=== PATIENT | female | born 1975 | race Caucasian/White ===

== ENCOUNTER → 2022-12-26 13:00 | Outpatient (CLI) | payer OTHER, BC, SELFPAY ==
--- NOTE | ~2022-12-26 | XR_ITS ---
EXAMINATION: XR foot RT min 3V DATE: 12/26/2022 13:32 INDICATION: Right foot pain TECHNIQUE: Dorsoplantar, lateral, and 2 oblique views of the right foot were obtained. COMPARISON: None. FINDINGS: No fracture, dislocation, or subluxation. The bones, soft tissues, and joint spaces are nor mal. IMPRESSION: 1. No acute osseous abnormality. Reviewed, dictated and finalized at location F. RELINER
== END ==
PROVIDERS: PCP Internal Medicine; Visit Provider Nurse Practitioner Family
DX: M25.571 Pain in right ankle and joints of right foot (principal)
CPT/HCPCS: 73630

== ENCOUNTER 2024-07-14 14:50 | Outpatient (CLI) | payer BC, SELFPAY ==
--- NOTE | ~2024-07-14 | CT_ITS ---
EXAMINATION: CT foot RT wo con DATE: 07/14/2024 15:21 INDICATION: Nonunion right fifth metatarsal fracture TECHNIQUE: High resolution computed tomography (CT) of the right foot was performed without intraveno us contrast. Additional sagittal and coronal reconstructions were performed. Matter dose Mendoza The dose-length product was 260.52 mGy-cm. COMPARISON: None FINDINGS: Nondisplaced oblique extra articular fracture at the neck of the fifth metatarsal which remains in es sentially anatomic alignment mild polyarticular osteoarthritis at the first metatarsophalangeal and m ultiple tarsometatarsal and interphalangeal joints. Soft tissues are unremarkable.. There is a small amount of nonbridging callus formation along the medial margin of the fracture. No evident solid osse ous bridging across the fracture plane which appears irregular some increased sclerosis but no eviden t solid cortication to suggest nonunion. Irregular cortical contour showing across the proximal metap hyseal region of the fifth metatarsal consistent with likely old healed fracture. There is a small os seous excrescence with cortical and medullary continuity at the medial side of the neck of the fifth proximal phalanx suggesting a small benign osteochondroma. IMPRESSION: 1. Small amount of nonbridging os formation along the medial side of an ununited oblique fracture at the neck of the distal fifth metatarsal. Reviewed, dictated and finalized at location A. IMPRESSION: 1. Small amount of nonbridging os formation along the medial side of an ununite d oblique fracture at the neck of the distal fifth metatarsal.
== END 2024-07-14 14:51 | disposition home or self-care (01) ==
LOC: GOSHIMG 14:50
PROVIDERS: PCP Podiatrist Foot & Ankle Surgery; Visit Provider Podiatrist Foot & Ankle Surgery
DX: S92.354K Nondisplaced fracture of fifth metatarsal bone, right foot, subsequent encounter for fracture with nonunion (principal); X58.XXXD Exposure to other specified factors, subsequent encounter
CPT/HCPCS: 73700

== ENCOUNTER 2024-10-23 14:38 | Emergency (ER) | payer BC, SELFPAY ==
--- NOTE | ~2024-10-23 | CT_ITS ---
EXAMINATION: CT brain wo con COMPARISON: None HISTORY: dizziness, hx falling TECHNIQUE: Axial images were obtained through the brain without IV contrast. CT scan performed using dose optimization techniques including the following automated exposure control; adjustment of mA and/or kV; use of iterative reconstruction technique. Automatic exposure control was used to reduce radiation dose. Permanent radiation dose record is archived to PACS. FINDINGS: No acute infarct or parenchymal hemorrhage. No abnormal mass or mass effect. No midline shift. No extra-axial fluid collections. No hydrocephalus. . Mastoid air cells unremarkable. Severe right maxillary sinusitis, underlying polyp formation suspected No acute fracture. No significant facial or scalp soft tissue swelling evident. No radiopaque foreign body is seen. Impression: 1.No acute intracranial abnormality. Reviewed, dictated and finalized at location A. Impression: 1.No acute intracranial abnormality.
--- OUTSIDE RECORDS SUMMARY | 2024-10-23 14:41 | XMS_ITS | Encounter Summary ---
Author Organization [facility] Address [address] [place] [address] Care Team Providers Care Campus Aide Name Role Phone Gunnar Gonzalez MD Primary Care Provider [phone] Reason for Visit * Reason Comments Refill Request Encounter Details Date Type Department Care Team (Late st Contact Info) Description 10/18/2024 Refill [facility] - Rheumatology [address] [place] [address], [facility] [place] [address] Gayle Spear MD [address] [place] [address] [place] [phone] Refill Request Social History Tobacco Use Types Packs/Day Years Used Date Smoking Tobacco: Never Smokeless Tobacco: Never Alcohol Use Standard Drinks/Week Comments Never 0 (1 standard drink = 0.6 oz pur e alcohol) Comments No Sex and Gender Information Value Date Recorded Sex Assigned at Female 08/15/2022 9:35 PM CDT Legal Sex Female 9:43 AM CDT Gender Identity Female 08/15/2022 9:35 PM CDT Sexual Orientation Straight 08/15/2022 9: 35 PM CDT documented as of this encounter Miscellaneous Notes * Telephone Encounter - Alejandra Saenz MD - 10/22/2024 3:22 PM CDT Pt needs follow up appointment with one of our first year fellows Sadie Yates or Anjum * Telephone Encounter - Zaid Reyes RN - 10/21/2024 3:44 PM CDT Refill Request Aissatou Santiago PASQUALE: 06/10/24Dec due: 6 month f/u DEC scheduled: Visit date not found LRF: Meloxicam 07/22/24; Plaquenil 07/22/24 Qty Disp: Meloxicam 90 tabs; Plaquenil 180 tab # of refills: Meloxicam 0; Plaquenil 0 Allergies: Allergies[1] Pended Medication Order: Requested Prescriptions Pending Prescriptions Disp Refills meloxicam (Mobic) 15 MG tablet [Pharmacy Med Name: Meloxicam 15 MG Oral Tablet] 90 tablet 0 Sig: Take 1 tablet by mouth once daily hydroxychloroquine (Plaquenil) 200 MG tablet [Pharmacy Med Name: Hydroxychloroquine Sulfate 200 MG Oral Tablet] 180 tablet 0 Sig: Take 1 tablet by mouth twice daily [1] Allergies Allergen Reactions Penicillins Itching documented in this encounter Plan of Treatment Not on file documented as of this encounter Visit Diagnoses Diagnosis Chronic fatigue Other malaise and fatigue Positive RUBY (antinuclear antibody) Other and unspecified nonspecific immunological findings documented in this encounter Care Teams Campus Aide Relationship Specialty Start Date End Date Gunnar Gonzalez MD [address] [place] [address] PCP - General 06/06/22 documented as of this encounter
--- OUTSIDE RECORDS SUMMARY | 2024-10-23 14:41 | XMS_ITS | Clinical Summary ---
Author Organization [facility] Address [address] 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 Gender Identity Not on file Sexual Orientation Not on file Plan of Treatment Health Maintenance Due Date Last Done Comments DTAP/TDAP/TD VACCINES (1 - Tdap) 12/19/1994 HEPATITIS B VACCINES (1 of 3 - 19+ 3-dose series) 12/06 HPV/Cotest (21-29) 12/19/1996 CERVICAL CANCER SCREENING 12/19/2005 HPV/Cotest (30-65) 12/19/2005 PAP SMEAR 12/19/2005 BREAST CANCER SCREENING 2015 COLORECTAL SCREENING 12/19/2020 Colorectal Cancer Screening 12/19/2020 FIT-DNA Q 3 years 12/19/2020 FIT/FOBT Q 1 year 12/19/2020 Flex Sig/CT Colonography Q 5 years 12/19/2020 INFLUENZA VACCINE (#1) 2024 Insurance RX [facility]
--- OUTSIDE RECORDS SUMMARY | 2024-10-23 14:41 | XMS_ITS | Clinical Summary ---
Author Organization [facility] Address [address] [place] [address] Care Team Providers Care Travel Nurse Name Role Phone Gunnar Gonzalez MD Primary Care Provider [phone] Source Comments [facility],non-owned Affiliates and Associated Physician Practices is amultiple site organization consisting of ambulatory clinics and hospital sitesin [place] and [place]. This disclosure is being madepursuant to the Care Everywhere program and may not contain all information available regarding this patient. Last updated 17.[facility] Allergies Active Allergy Reactions Criticality Noted Date Comments Penicillins Itching Medium 08/22/2022 Medications * Be aware that medications may not be up to date on this document. Alwaysverify current medications with the patient. albuterol HFA (Proventil; Ventolin; Proair) 108 (90 Base) MCG/ACT inhaler 3 Active Flovent Diskus 50 MCG/ACT inhaler Inhale 1 (one) puff by mouth 2 times daily 3 Active montelukast (Singulair) 10 MG tablet Take 1 (one) tablet by mouth once daily 3 Active spironolactone (Aldactone) 25 MG tablet Take 1 (one) tablet by mouth once daily 3 Active verapamil CR (Isoptin-SR) 240 MG tablet Take 1 (one) tablet by mouth 3 Active Fexofenadine HCl (MYESHA ALLERGY PO) Take 1 tablet by mouth once daily Active vitamin D3 (Cholecalcifero l) 10 MCG (400 UNIT) tablet Take 1 (one) tablet by mouth once daily Active Qvar RediHaler 80 MCG/ACT inhaler Inhale 1 (one) puff by mouth 2 times daily Active meloxicam (Mobic) 15 MG tabletIndicatio ns:Chronic fatigue,Positiv e RUBY (antinuclear antibody) Take 1 tablet by mouth once daily 90 tablet 5 Active hydroxychloroqu ine (Plaquenil) 200 MG tablet Take 1 tablet by mouth twice daily 180 tablet 5 Active meloxicam (Mobic) 15 MG tabletIndicatio ns:Chronic fatigue,Positiv e RUBY (antinuclear antibody) Take 1 tablet by mouth once daily 90 tablet 5 10/23/19 25 Discontinued hydroxychloroqu ine (Plaquenil) 200 MG tablet Take 1 tablet by mouth twice daily 180 tablet 5 10/23/19 25 Discontinued Encounters Date Type Department Care Team Description 10/18/2024 Refill [facility] - Rheumatology [address] [place] [address], [place] [id number] Gayle Spear MD Refill Request from Last 3 Months Social History Tobacco Use Types Packs/Day Years [...] Orientation Straight 08/15/2022 9: 35 PM CDT Last Filed Vital Signs Vital Sign Reading Time Taken Comments Blood Pressure 153/83 06/10/2024 10:43 AM CDT Pulse 80 06/10/2024 10:29 AM CDT Temperature 36.2 C (97.1 F) 06/10/2024 10:29 AM CDT Respiratory Rate - - Oxygen Saturation 100% 08/07/2023 10:04 AM CDT Inhaled Oxygen Concentration - - Weight 90.4 kg (199 lb 6.4 oz) 06/10/2024 10:29 AM CDT Height 175.3 cm (5' 9.02) 06/10/2024 10:29 AM C DT Body Mass Index 29.43 06/10/2024 10:29 AM CDT Plan of Treatment Health Maintenance Due Date Last Done Comments COLOGUARD (AGES 45-75) - COLON CA SCREENING 1975 COLON MONITORING 1975 COLONOSCOPY - COLON CA SCREENING 1975 CT COLONOGRAPHY - COLON CA SCREENING 1975 Colorectal Cancer Screening 1975 FIT - COLON CA SCREENING 1975 FLEX SIG - COLON CA SCREENING 1975 LIPID TESTING 1975 HIV SCREENING 12/19/1990 DTAP/TDAP/TD VACCINES (1 - Tdap) 12/19/1994 HEPATITIS B VACCINE (1 of 3 - 19+ 3-dose series) 12/19/1994 PAP SMEAR 12/19/1996 DEPRESSION SCREENING 02/06/2024 COVID-19 VACCINE (1 - season) 2024 INFLUENZA VACCINE (#1) 2024 ZOSTER VACCINE (1 of 2) 12/19/2025 MAMMOGRAM 03/12/2026 03/12/2024, 06/2024, 12/09/2020, Additional history exists SCREENING FOR DIABETES 06/14/2027 , 08/10/2023, 08/22/2022 HEPATITIS C SCREENING Completed 08/22/2022 HIB VACCINE Aged Out No longer eligi ble based on patient's age to complete this topic HPV VACCINE Aged Out No longer eligi ble based on patient's age to complete this topic MENINGOCOCCAL (Group B) VACCINE SHARED DECISION-MAKING Aged Out No longer eligible based on patient's age to complete this topic MENINGOCOCCAL GROUPS A/C/Y/W VACCINE Aged Out No longer eligible based on patient's age to complete this topic PNEUMOCOCCAL VACCINE Aged Out No long er eligible based on patient's age to complete this topic Procedures Procedure Name Priority Date/Time Associated Diagnosis Comments COMPREHENSIVE METABOLIC PANEL Routine 06/13/2024 12:02 PM CDT Positive RUBY (antinuclear antibody) Lupus anticoagulant positive Therapeutic drug monitoring Chronic fatigue HEPATITIS C ANTIBODY Routine 08/22/2022 11:36 AM CDT Chronic fatigue Positive RUBY (antinuclear antibody) from Last 3 Months or Most Recently Relevant to Health Maintenance Results * (ABNORMAL) COMPREHENSIVE METABOLIC PANEL (06/13/2024 12:02 PM [facility]) BUN 16 7 - 26 mg/dL 06/13/2024 12:54 PM [facility] Creatinine 0.64 0.56 - 0.96 mg/dL 06/13/2024 12:54 PM [facility] Sodium 138 136 - 145 mmol/L 06/13/2024 12:54 PM [facility] Potassium 4.2 3.5 - 4.5 mmol/L 06/13/2024 12:54 PM [facility] Chloride 106 98 - 107 mmol/L 06/13/2024 12:54 PM [facility] CO2 20(L) 22 - 29 mmol/L 06/13/2024 12:54 PM [facility] Glucose 96 70 - 99 mg/dL 06/13/2024 12:54 PM [facility] Calcium 9.0 8.4 - 10.2 mg/dL 06/13/2024 12:54 PM [facility] Protein Total 7.8 6.0 - 8.3 g/dL 06/13/2024 12:54 PM [facility] Albumin 4.2 3.4 - 5.0 g/dL 06/13/2024 12:54 PM [facility] Bilirubin Total 0.3 0.2 - 1.2 mg/dL 06/13/2024 12:54 PM [facility] Alkaline Phosphatase 81 40 - 150 U/L 06/13/2024 12:54 PM [facility] ALT 13 5 - 55 U/L 06/13/2024 12:54 PM [facility] AST 17 5 - 34 U/L 06/13/2024 12:54 PM [facility] Anion Gap 12 6 - 16 06/13/2024 12:54 PM [facility] BUN/Creatinine Ratio 25(H) 7 - 23 06/13/2024 12:54 PM [facility] Osmolality Calculated 287 275 - 295 mOsm/kg 06/13/2024 12:54 PM [facility] Albumin/Globulin Ratio 1.2 1.1 - 2.3 06/13/2024 12:54 PM CDT [facility] eGFR by CKD-EPI >90 >=90 mL/min/1.7 3 m2 06/13/2024 12:54 PM CDT [facility] Blood BLOOD SPECIMEN / Unknown Lab Venipuncture / Unknown 06/13/2024 12:02 PM CDT 06/13/2024 12:20 PM CDT Gricelda Dyson MD LAB - CHEMISTRY ORDERABL ES Final Result Performing Organization Address [facility] Co de Phone Number [facility] [address] [place] [address], [place] [phone] * HEPATITIS C ANTIBODY (08/22/2022 11:36 AM CDT) Pathologist [facility] Hepatitis C Antibody Non-react bee Non-reac tive 08/22/2022 2:34 PM CDT [facility] Comment:Hepatitis C Antibody screen indicates no serologic evidence of past or current infection with Hepatitis C Virus. Patients with unexplained liver disease who are immunocompromised or suspected of having acute Hepatitis C infection may benefit from Nucleic Acid Test (SHELBY) for Hepatitis C Viral RNA to confirm Hepatitis C status. Blood BLOOD SPECIMEN / Unknown Lab Venipuncture / Unknown 08/22/2022 11:36 AM CDT 08/22/2022 11:40 AM CDT Alejandra Saenz MD LAB - CHEMISTRY ORDERA BLES Final Result Performing Organization Address City/[facility]/ZIP Co de Phone Number [address] [address], [place] [phone] from Last 3 Months or Most Recently Relevant to Health Maintenance Insurance [employer] Care Teams Travel Nurse Relationship Specialty Start Date End Date Gunnar Gonzalez MD [address] [place], [place] [id number] PCP - General 06/06/22
[2024-10-23 14:49] VITALS: BP 176/84; PULSE 97; RESP 16; TEMP 37.2; O2SAT 100
--- NOTE | 2024-10-23 14:57 | ECG_ITS ---
Test Date: 2024-10-23 17:39:43 Measurements Intervals [place] Rate: 85 P: 68 AR: 159 QRS: 13 QRSD: 113 T: 54 QT: 379 QTc: 453 Interpretive Statements SINUS RHYTHM LEFT ATRIAL ENLARGEMENT [-0.15mV P-WAVE IN V1/V2] LOW QRS VOLTAGE IN PRECORDIAL LEADS [QRS DEFLECTION < 1.0 mV IN CHEST LEADS] INCOMPLETE RIGHT BUNDLE BRANCH BLOCK [90+ ms QRS DURATION, TERMINAL R IN V1/V2, 40+ ms S IN I/aVL/V4/V5/V6] ABNORMAL ECG No previous ECG available for comparison Electronically Signed On 10-23-2024 18:01:31 CDT by Steve Borja M.D.
--- NOTE | 2024-10-23 15:00 | ED.GENADULT ---
HPI - General Adult General Chief complaint: Unspecified <Laverne Esposito APRN - Last Filed: 10/23/24 15:02> Stated complaint: Feels like she's going to pass out <Laverne Esposito APRN - Last Filed: 10/23/24 15:02> Time Seen by Provider: 10/23/24 15:00 <Laverne Esposito APRN - Last Filed: 10/23/24 15:02> Focused HPI: Patient is a 48-year-old female who presents to the ER with complaints of dizziness. She reports she has had episodes of walking and falling since December, 10 months ago. Patient reports her primary care provider ordered a carotid ultrasound 2 weeks ago and it was normal. She reports she has an MRI scheduled for tomorrow but her symptoms worsened today. Patient endorses a history of sinus issues and anemia. She denies any shortness of breath, chest pain, or recent fevers. GENERAL: Ill-appearing, well-nourished, and in no acute distress. HEAD: Normocephalic, atraumatic. CHEST: Clear to auscultation. ?No respiratory distress. HEART: Regular rate and rhythm.? NEURO: ?Alert and oriented x3. Patient screened in triage and initial orders placed.? ?Additional care and disposition to be based upon?diagnostic testing and treatment. 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 She denies having any headache or chest pain. She states that she is scheduled for MRI of the head tomorrow. Denies any nausea, vomiting or abdominal pain or motor weakness. <Rush Sun MD - Last Filed: 10/23/24 20:30> Onset (ago): month(s) <Rush Sun MD - Last Filed: 10/23/24 20:30> Radiation: non-radiation <Rush Sun MD - Last Filed: 10/23/24 20:30> Severity: moderate <Rush Sun MD - Last Filed: 10/23/24 20:30> Related Data Allergies/adverse reactions: Allergies Allergy/AdvReac Type Severity Reaction Status Date / Time Penicillins Allergy Intermediate Hives Verified 10/23/24 14:51 <Laverne Esposito, DIETITIAN RESEARCH - Last Filed: 10/23/24 15:02> Review of Systems Review of Systems: All systems reviewed & are unremarkable except as noted in HPI and below <Rush Sun MD - Last Filed: 10/23/24 20:30> Constitutional: Constitutional: Reports no additional constitutional complaints <Rush Sun MD - Last Filed: 10/23/24 20:30> Eyes: Eyes: Reports no additional eye complaints <Rush Sun MD - Last Filed: 10/23/24 20:30> ENT: Reports system reviewed and no additional complaints, except as documented <Rush Sun MD - Last Filed: 10/23/24 20:30> Cardiovascular: Cardiovascular: Reports no additional cardiovascular complaints <Rush Sun MD - Last Filed: 10/23/24 20:30> Respiratory: Respiratory: Reports no additional respiratory complaints <Rush Sun MD - Last Filed: 10/23/24 20:30> Gastrointestinal: Gastrointestinal: Reports no additional gastrointestinal complaints <Rush Sun MD - Last Filed: 10/23/24 20:30> Genitourinary: Genitourinary: Reports no additional female genitourinary complaints <Rush Sun MD - Last Filed: 10/23/24 20:30> Musculoskeletal: Musculoskeletal: Reports no additional musculoskeletal complaints <Rush Sun MD - Last Filed: 10/23/24 20:30> Neurologic: Reports as per HPI <Rush Sun MD - Last Filed: 10/23/24 20:30> Psychiatric: Psychiatric: Reports no additional psychiatric complaints <Rush Sun MD - Last Filed: 10/23/24 20:30> Exam Narrative: GENERAL: Well-appearing, well-nourished, and in no acute distress. HEAD: Normocephalic, atraumatic. EYES: PERRLA and EOMI. ENT: Nares clear, no rhinorrhea or epistaxis. Mucous membranes moist. NECK: Supple. CHEST: Clear to auscultation. No respiratory distress. HEART: Regular rate and rhythm. No murmur heard. Normal peripheral pulses. EXTREMITIES: Normal range of motion. No edema. SKIN: Warm, dry, no rash. NEURO: No focal deficits. Alert and oriented x3. PSYCH: Normal mood and affect. 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 She also states that the blood pressure was high. She denies any headache or chest pain. Did a CT of the head which was unremarkable so sorry lab work. By the time she got to the ER room her symptoms much resolved and she feels comfortable going home. <Rush Sun MD - Last Filed: 10/23/24 20:30> Vital Signs Vital signs: Vital Signs Temperature 37.2 C 10/23/24 14:49 Pulse Rate 97 10/23/24 14:49 Respiratory Rate 16 10/23/24 14:49 Blood Pressure 176/84 H 10/23/24 14:49 Pulse Oximetry 100 10/23/24 14:49 Temperature 37.2 C 10/23/24 14:49 Pulse Rate 97 10/23/24 14:49 Respiratory Rate 16 10/23/24 14:49 Blood Pressure 176/84 H 10/23/24 14:49 Pulse Oximetry 100 10/23/24 14:49 <Laverne Esposito APRN - Last Filed: 10/23/24 15:02> Vital Signs Temperature 37.2 C 10/23/24 14:49 Pulse Rate 97 10/23/24 14:49 Respiratory Rate 16 10/23/24 14:49 Blood Pressure 176/84 H 10/23/24 14:49 Pulse Oximetry 100 10/23/24 14:49 Temperature 37.2 C 10/23/24 14:49 Pulse Rate 97 10/23/24 14:49 Respiratory Rate 16 10/23/24 14:49 Blood Pressure 176/84 H 10/23/24 14:49 Pulse Oximetry 100 10/23/24 14:49 <Rush Sun MD - Last Filed: 10/23/24 20:30> Medical Decision Making Differential Diagnosis Differential Diagnosis: dizziness unknow , hypotension ,vertigo , BPPV <Rush Sun MD - Last Filed: 10/23/24 20:30> Medical Records Medical records reviewed: Yes I reviewed the external patient's medical records. <Rush Sun MD - Last Filed: 10/23/24 20:30> Vital Signs Vital Signs: Vital Signs Temperature 37.2 C 10/23/24 14:49 Pulse Rate 97 10/23/24 14:49 Respiratory Rate 16 10/23/24 14:49 Blood Pressure 176/84 H 10/23/24 14:49 Pulse Oximetry 100 10/23/24 14:49 Temperature 37.2 C 10/23/24 14:49 Pulse Rate 97 10/23/24 14:49 Respiratory Rate 16 10/23/24 14:49 Blood Pressure 176/84 H 10/23/24 14:49 Pulse Oximetry 100 10/23/24 14:49 <Laverne Esposito APRN - Last Filed: 10/23/24 15:02> Vital Signs Temperature 37.2 C 10/23/24 14:49 Pulse Rate 97 10/23/24 14:49 Respiratory Rate 16 10/23/24 14:49 Blood Pressure 176/84 H 10/23/24 14:49 Pulse Oximetry 100 10/23/24 14:49 Temperature 37.2 C 10/23/24 14:49 Pulse Rate 97 10/23/24 14:49 Respiratory Rate 16 10/23/24 14:49 Blood Pressure 176/84 H 10/23/24 14:49 Pulse Oximetry 100 10/23/24 14:49 <Rush Sun MD - Last Filed: 10/23/24 20:30> Lab Data Lab results reviewed: Yes I reviewed the patient's lab results. <Rush Sun MD - Last Filed: 10/23/24 20:30> Result diagrams: 10/23/24 17:39 10/23/24 17:39 <Laverne Esposito, DIETITIAN RESEARCH - Last Filed: 10/23/24 15:02> Labs: Lab Results 10/23/24 Range/Units 17:39 WBC 8.9 (4.5-10.0) K/mm3 RBC 4.07 L (4.2-5.4) M/mm3 Hgb 12.2 (12.0-15.0) g/dL Hct 37.9 (37.0-47.0) % MCV 93.1 (80-100) fl MCH 30.0 (26-34) pg MCHC 32.2 (32-36) g/dl RDW 12.9 (11.5-14.5) % Plt Count 393 H (150-375) k/mm3 MPV 8.5 (7.4-10.4) fl Immature Gran % (Auto) 0.2 (0-0.5) % Neut % (Auto) 66.9 (45.5-73.1) % Lymph % (Auto) 16.5 L (18.3-44.2) % [place] % (Auto) 11.6 H (2.6-8.5) % Eos % (Auto) 3.3 (0-4.4) % Baso % (Auto) 1.5 H (0.2-1.2) % Lymph # (Auto) 1.46 (0.9-3.2) K/mm3 [place] # (Auto) 1.0 H (0.1-0.6) K/mm3 Eos # (Auto) 0.3 (0-0.3) K/mm3 Baso # (Auto) 0.1 (0.0-0.1) K/mm3 Abs Immat Gran (auto) 0.02 (0.00-0.031) K/mm3 Absolute Neuts (auto) 5.9 (1.3-6.7) K/mm3 Absolute Nucleated RBC 0.000 (0.0-0.012) K/mm3 Nucleated RBC % 0.0 (0.0-0.2) % PT 13.1 (11.1-14.7) Seconds INR 1.0 APTT 29.0 (22.3-36.8) Seconds Sodium 138 (137-145) mmol/L Potassium 4.2 (3.4-5.0) mmol/L Chloride 106 (98-107) mmol/L Carbon Dioxide 25 (22-30) mmol/L Anion Gap 7 (4-12) mmol/L BUN 17 (7-17) mg/dL Creatinine 0.80 (0.7-1.0) mg/dL Estim Creat Clear Calc 78 ml/min Estimated GFR > 60 (59 - ) Glucose 96 (65-110) mg/dL Calcium 9.4 (8.4-10.2) mg/dL Total Bilirubin 0.3 (0.2-1.3) mg/dL AST 30 (14-36) U/L ALT 22 (6-35) U/L Alkaline Phosphatase 82 (38-126) U/L Total Protein 8.2 (6.3-8.2) g/dL Albumin 4.6 (3.5-5.1) g/dL TSH 2.300 (0.465-4.680) uIU/mL Urine Color Yellow (Yellow) Urine Appearance Clear (Clear) Urine pH 7.0 (5.0-9.0) Ur Specific [place] 1.017 (1.001-1.035) Urine Protein Negative (Negative) mg/dL Urine Glucose (UA) Negative (Negative) mg/dL Urine Ketones Negative (Negative) mg/dL Ur Blood (Man) Negative (Negative) Urine Nitrate Negative (Negative) Urine Bilirubin Negative (Negative) Urine Urobilinogen 1.0 (<2.0) mg/dL Leukocyte Esterase Rfl Negative (Negative) ALTAGRACIA/UL Urine Opiates Screen Negative (Negative) Urine Methadone Screen Negative (Negative) Ur Barbiturates Screen Negative (Negative) Ur Phencyclidine Scrn Negative (Negative) Ur Amphetamine Screen Negative (Negative) U Benzodiazepines Scrn Negative (Negative) Urine Cocaine Screen Negative (Negative) U Cannabinoids Screen Negative (Negative) Ethyl Alcohol < 10 (<10) mg/dL <Laverne Esposito, DIETITIAN RESEARCH - Last Filed: 10/23/24 15:02> Lab Results 10/23/24 Range/Units 17:39 WBC 8.9 (4.5-10.0) K/mm3 RBC 4.07 L (4.2-5.4) M/mm3 Hgb 12.2 (12.0-15.0) g/dL Hct 37.9 (37.0-47.0) % MCV 93.1 (80-100) fl MCH 30.0 (26-34) pg MCHC 32.2 (32-36) g/dl RDW 12.9 (11.5-14.5) % Plt Count 393 H (150-375) k/mm3 MPV 8.5 (7.4-10.4) fl Immature Gran % (Auto) 0.2 (0-0.5) % Neut % (Auto) 66.9 (45.5-73.1) % Lymph % (Auto) 16.5 L (18.3-44.2) % [place] % (Auto) 11.6 H (2.6-8.5) % Eos % (Auto) 3.3 (0-4.4) % Baso % (Auto) 1.5 H (0.2-1.2) % Lymph # (Auto) 1.46 (0.9-3.2) K/mm3 [place] # (Auto) 1.0 H (0.1-0.6) K/mm3 Eos # (Auto) 0.3 (0-0.3) K/mm3 Baso # (Auto) 0.1 (0.0-0.1) K/mm3 Abs Immat Gran (auto) 0.02 (0.00-0.031) K/mm3 Absolute Neuts (auto) 5.9 (1.3-6.7) K/mm3 Absolute Nucleated RBC 0.000 (0.0-0.012) K/mm3 Nucleated RBC % 0.0 (0.0-0.2) % PT 13.1 (11.1-14.7) Seconds INR 1.0 APTT 29.0 (22.3-36.8) Seconds Sodium 138 (137-145) mmol/L Potassium 4.2 (3.4-5.0) mmol/L Chloride 106 (98-107) mmol/L Carbon Dioxide 25 (22-30) mmol/L Anion Gap 7 (4-12) mmol/L BUN 17 (7-17) mg/dL Creatinine 0.80 (0.7-1.0) mg/dL Estim Creat Clear Calc 78 ml/min Estimated GFR > 60 (59 - ) Glucose 96 (65-110) mg/dL Calcium 9.4 (8.4-10.2) mg/dL Total Bilirubin 0.3 (0.2-1.3) mg/dL AST 30 (14-36) U/L ALT 22 (6-35) U/L Alkaline Phosphatase 82 (38-126) U/L Total Protein 8.2 (6.3-8.2) g/dL Albumin 4.6 (3.5-5.1) g/dL TSH 2.300 (0.465-4.680) uIU/mL Urine Color Yellow (Yellow) Urine Appearance Clear (Clear) Urine pH 7.0 (5.0-9.0) Ur Specific [place] 1.017 (1.001-1.035) Urine Protein Negative (Negative) mg/dL Urine Glucose (UA) Negative (Negative) mg/dL Urine Ketones Negative (Negative) mg/dL Ur Blood (Man) Negative (Negative) Urine Nitrate Negative (Negative) Urine Bilirubin Negative (Negative) Urine Urobilinogen 1.0 (<2.0) mg/dL Leukocyte Esterase Rfl Negative (Negative) ALTAGRACIA/UL Urine Opiates Screen Negative (Negative) Urine Methadone Screen Negative (Negative) Ur Barbiturates Screen Negative (Negative) Ur Phencyclidine Scrn Negative (Negative) Ur Amphetamine Screen Negative (Negative) U Benzodiazepines Scrn Negative (Negative) Urine Cocaine Screen Negative (Negative) U Cannabinoids Screen Negative (Negative) Ethyl Alcohol < 10 (<10) mg/dL <Rush Sun MD - Last Filed: 10/23/24 20:30> Imaging Data Radiologist's impression: ITS Impressions Head CT 10/23/24 15:33 Impression: 1.No acute intracranial abnormality. <Rush Sun MD - Last Filed: 10/23/24 20:30> ECG Data EKG #1: ECG completion date: 10/23/24 <Rush Sun MD - Last Filed: 10/23/24 20:30> ECG completion time: 17:39 <Rush Sun MD - Last Filed: 10/23/24 20:30> EKG Interpretation: normal rate (85), sinus rhythm, no ST changes, normal QRS and NL axis <Rush Sun MD - Last Filed: 10/23/24 20:30> Discharge Plan Discharge Clinical Impression: Dizziness <Laverne Esposito APRN - Last Filed: 10/23/24 15:02> Patient Disposition: Home <Laverne Esposito APRN - Last Filed: 10/23/24 15:02> Condition: Stable <Laverne Esposito APRN - Last Filed: 10/23/24 15:02> Instructions: Dizziness (ED) <Laverne Esposito APRN - Last Filed: 10/23/24 15:02> Additional Instructions: continue home medications, follow with your doctor , get your MRI as schecduled <Laverne Esposito APRN - Last Filed: 10/23/24 15:02> Patient Language: Slovenian <Laverne Esposito APRN - Last Filed: 10/23/24 15:02> Follow-up/Referrals: Digna Mojica, DPM [Primary Care Provider, Podiatry] <Laverne Esposito APRN - Last Filed: 10/23/24 15:02> Time of Disposition: 20:24 <Laverne Esposito APRN - Last Filed: 10/23/24 15:02> 20:24 <Rush Sun MD - Last Filed: 10/23/24 20:30>
--- OUTSIDE RECORDS SUMMARY | 2024-10-23 15:02 | XMS_ITS | Encounter Summary ---
Author Organization [facility] Address [address] [place] [address] Care Team Providers Care Hotel Front Desk Agent Name Role Phone Gunnar Gonzalez MD Primary Care Provider [phone] Reason for Visit * Reason Comments Refill Request Encounter Details Date Type Department Care Team (Late st Contact Info) Description 10/18/2024 Refill [facility] - Rheumatology [address] [place] [address], [facility] [place] [address] Gayle Spear MD [address] [place] [address] [place] [id number] Refill Request Social History Tobacco Use Types [...] findings documented in this encounter Care Teams Hotel Front Desk Agent Relationship Specialty Start Date End Date Gunnar Gonzalez MD [address] [place] [address] PCP - General 06/06/22 documented as of this encounter
--- OUTSIDE RECORDS SUMMARY | 2024-10-23 15:02 | XMS_ITS | Clinical Summary ---
Author Organization [facility] [employer] [facility] Address [address] [place] [place] [address] Care Team Providers Care Call Center Consultant Name Role Phone Gunnar Gonzalez MD Primary Care Provider [phone] Source Comments [facility] [employer] [facility],non-owned Affiliates and Associated Physician Practices is amultiple site organization consisting of ambulatory clinics and hospital sitesin [place], [place], [place] and [place]. This disclosure is being madepursuant to the Care Everywhere program and may not contain all information available regarding this patient. Last updated 17.[facility] [employer] [facility] Allergies Active Allergy Reactions Criticality Noted Date [...] tablet by mouth 3 Active Fexofenadine HCl (MYSEHA ALLERGY PO) Take 1 tablet by mouth [...] 10/18/2024 Refill [facility] - Rheumatology [address] [place] [address], [place] [id number] Gayle Spear MD Refill Request from Last [...] (ABNORMAL) COMPREHENSIVE METABOLIC PANEL (06/13/2024 12:02 PM [facility]) BUN 16 7 - 26 mg/dL 06/13/2024 12:54 PM [facility] Creatinine 0.64 0.56 - 0.96 mg/dL 06/13/2024 12:54 PM [facility] Sodium 138 136 - 145 mmol/L 06/13/2024 12:54 PM [facility] Potassium 4.2 3.5 - 4.5 mmol/L 06/13/2024 12:54 PM [facility] Chloride 106 98 - 107 mmol/L 06/13/2024 12:54 PM [facility] CO2 20(L) 22 - 29 mmol/L 06/13/2024 12:54 PM [facility] Glucose 96 70 - 99 mg/dL 06/13/2024 12:54 PM [facility] Calcium 9.0 8.4 - 10.2 mg/dL 06/13/2024 12:54 PM [facility] Protein Total 7.8 6.0 - 8.3 g/dL 06/13/2024 12:54 PM [facility] Albumin 4.2 3.4 - 5.0 g/dL 06/13/2024 12:54 PM [facility] Bilirubin Total 0.3 0.2 - 1.2 mg/dL 06/13/2024 12:54 PM [facility] Alkaline Phosphatase 81 40 - 150 U/L 06/13/2024 12:54 PM [facility] ALT 13 5 - 55 U/L 06/13/2024 12:54 PM [facility] AST 17 5 - 34 U/L 06/13/2024 12:54 PM [facility] Anion Gap 12 6 - 16 06/13/2024 12:54 PM [facility] BUN/Creatinine Ratio 25(H) 7 - 23 06/13/2024 12:54 PM [facility] Osmolality Calculated 287 275 - 295 mOsm/kg 06/13/2024 12:54 PM [facility] Albumin/Globulin Ratio 1.2 1.1 - 2.3 06/13/2024 12:54 PM CDT [facility] eGFR by CKD-EPI >90 >=90 mL/min/1.7 3 m2 06/13/2024 12:54 PM CDT [facility] Blood BLOOD SPECIMEN / Unknown Lab Venipuncture / Unknown 06/13/2024 12:02 PM CDT 06/13/2024 12:20 PM CDT Gricelda Dyson MD LAB - CHEMISTRY ORDERABL ES Final Result Performing Organization Address [facility] Co de Phone Number [facility] [address] [place] [address], [place] [phone] * HEPATITIS C ANTIBODY (08/22/2022 11:36 AM CDT) Pathologist [facility] Hepatitis C Antibody Non-react bee Non-reac tive 08/22/2022 2:34 PM CDT [facility] Comment:Hepatitis C Antibody screen indicates no [...] ORDERA BLES Final Result Performing Organization Address City/[facility]/ZIP Co de Phone Number [address] [address], [place] [phone] from Last 3 Months or Most Recently Relevant to Health Maintenance Insurance [employer] Care Teams Call Center Consultant Relationship Specialty Start Date End Date Gunnar Gonzalez MD [address] [place], [place] [phone] PCP - General 06/06/22
--- OUTSIDE RECORDS SUMMARY | 2024-10-23 15:02 | XMS_ITS | Clinical Summary ---
Author Organization [facility] Address [address] [place]: Epic Prelude ADT SKINNY IBARRA [address] Care Team Providers Care Express Manager Name Role Phone Unavailable Primary Care Provider [...] on file Legal Sex Female 10:34 AM [employer] Gender Identity Not on file Sexual Orientation [...] INFLUENZA VACCINE (#1) 2024 Insurance RX [facility]
--- OUTSIDE RECORDS SUMMARY | 2024-10-23 15:02 | XMS_ITS | Clinical Summary ---
Author Organization [facility] Address [address] [place] [address] Care Team Providers Care Network Consultant Name Role Phone Gunnar Potter MD Primary Care Provider [phone] Medications verapamil (CALAN SR) 240 MG ER tablet 4 Active ZEPBOUND 5 MG/0.5ML injection INJECT 5MG SUBCUTANEOUSLY ONCE WEEKLY 4 Active spironolactone (ALDACTONE) 25 MG tablet Take 1 tablet (25 mg total) by mouth every morning. FOR 14 DAYS 4 Active neomycin-polym yxin-dexametha sone (MAXITROL) 3.5-31676-6.1 Suspension INSTILL 1 DROP INTO RIGHT EYE 4 TIMES DAILY FOR 7 DAYS FOR INFECTION 4 Active montelukast (SINGULAIR) 10 MG tablet 4 Active meloxicam (MOBIC) 15 MG tablet Take 1 tablet (15 mg total) by mouth daily. Active hydroxychloroq uine (PLAQUENIL) 200 MG tablet Take 1 tablet (200 mg total) by mouth 2 (two) times daily. Active Fluticasone Propionate, Inhal, (FLUTICASONE PROPIONATE DISKUS) 50 MCG/ACT AEROSOL POWDER, BREATH ACTIVATED 4 Active vitamin D3 10 mcg tablet Take 1 tablet (400 Units total) by mouth daily. Active buPROPion XL (WELLBUTRIN XL) 300 MG 24 hr tablet Take 1 tablet (300 mg total) by mouth daily. 4 Active QVAR REDIHALER 80 MCG/ACT AEROSOL, BREATH ACTIVATED Take 1 puff by mouth 2 (two) times daily. 4 Active albuterol sulfate HFA 108 (90 Base) MCG/ACT inhaler inhale 1 to 2 puffs by mouth every 4 to 6 hours as needed Active Encounters Date Type Department Care Team Description 10/03/2024 11:00 AM CDT - 10/03/2024 11:59 PM CDT Hospital Encounter [facility] [place] [address] Gunnar Potter MD Discharge Disposition: Home or Self Care (Routine Discharge) 10/03/2024 Travel from Last 3 Months Family History Medical History Relation Comments Breast Cancer Neg Hx Social History Tobacco Use Types Packs/Day Years Used Date Smoking Tobacco: Never Passive Smoke Exposure: Never Smokeless Tobacco: Never Tobacco Cessation:Counseling Given: No Comments No Sex and Gender Information Value Date Recorded Sex Assigned at Not on file Legal Sex Female 1:40 AM CDT Gender Identity Not on file Sexual Orientation Not on file Last Filed Vital Signs Vital Sign Reading Time Taken Comments Blood Pressure 125/74 01/09/2024 1:08 PM LAMP [employer]ADE [employer] Pulse 78 01/09/2024 1:08 PM [employer]AMP [employer]ADE [employer] Temperature 36.7 C (98.1 F) 01/09/2024 1:08 PM [employer]ADE [employer] Respiratory Rate 16 01/09/2024 1:08 PM [employer]AMP [employer]ADE [employer] Oxygen Saturation 100% 01/09/2024 1:08 PM [employer]AMP [employer]ADE [employer] Inhaled Oxygen Concentration - - Weight 86.4 kg (190 lb 6.4 oz) 01/09/2024 1:08 P M [employer]AMP [employer]ADE [employer] Height 175.3 cm (5' 9) 09/28/2011 9:05 AM CDT Body Mass Index - - Plan of Treatment Upcoming Encounters Date Type Department Care Team (Late st Contact Info) Description 10/24/2024 9:45 AM CDT Appointment Health system MRI [address] [place] [address] Gunnar Potter MD [address] [place] [address] Health Maintenance Due Date Last Done Comments Cervical Cancer Screening Pa p Smear (Age 30 to 64) Every 3 Years 1975 Colorectal Cancer Screening Colonoscopy (10 Years) 1975 Annual Physical 12/19/1978 DTaP, Tdap and Td Vaccines ( 1 - Tdap) 12/19/1994 Hepatitis B Vaccines (1 of 3 - 19+ 3-dose series) 12/19/1994 Cervical Cancer Screening Pa p with HPV Testing (Age 30 to 64) Every 5 Years 12/19/2005 Cervical Cancer Screening wi th HPV 12/19/2005 PHQ-2 (Physician [place]) 02/06/2024 COVID-19 Vaccine (2 - 2024-2 6 season) 2024 04/15/2020 Mammogram Screening 03/12/2026 03/12/2024, 12/09/2020, 02/13/2019 Hepatitis C Completed 08/22/2022 Meningococcal B Vaccine Aged Out No l onger eligible based on patient's age to complete this topic Meningococcal Vaccine Aged Out No soraya leticia eligible based on patient's age to complete this topic Pneumococcal Vaccine: Pediatrics (0 to 5 Years) and At-Risk Patients (6 to 49 Years) Aged Out No longer eligible b ased on patient's age to complete this topic RSV Immunizations Under 20 Months Aged Out No longer eligible b ased on patient's age to complete this topic Procedures Procedure Name Priority Date/Time Associated Diagnosis Comments USV CAROTID DUPLEX RUIZ Routine 10/03/2024 11:31 AM CDT Repeated falls Pain in left knee MG SCREENING W JING RUIZ DIGI Routine 03/12/2024 12:40 PM [employer]AMP [employer]ADE [employer] Screening mammogram for breast cancer from Last 3 Months or Most Recently Relevant to Health Maintenance Results * USV CAROTID DUPLEX RUIZ (10/03/2024 11:31 AM CDT) Anatomical Region Laterality Modality Neck Vascular Ultraso und 10/03/2024 11:0 8 AM CDT Narrative 10/06/2024 8:26 PM CDT CAROTID ARTERY DUPLEX IMAGING VASCULAR LAB Pat.Name: LORA GUZMAN Pat.ID: [id number] St.Date: 10/03/2024 Refer.: [id number] ABBEY HALL Exam Time: 11:08:00 AM Study Type:EDU VS Duplex Carotid BI Age: 11 1975,48Y Sex: F Sonogrphr: Klaudia [facility], T Pat. Stat.:Outpatient History / Clinical:Several falls, 15 in the last 6 month. Left knee gives out on her, has had 2 right foot fractures in the last 9 months, and ear clogged. Procedures: Meyer scale, Color Doppler imaging, Doppler Spectral Analysis ++++++++++++++++++++++++++++++++++++ SUMMARY: ++++++++++++++++++++++++++++++++++++ St E's Carotid Criteria 50-69% = PSV 180-230 and/or Ratio 2.0 - 4.0 >70% = PSV >230 and Ratio >4.0 or EDV >100 Stent Criteria >80% = PSV >340 and Ratio >4.0 Right side: The right bifurcation-internal carotid artery has no plaque. Internal carotid maximum velocity is 103 cm/s, with a ratio of 0.954 . The common carotid artery has no plaque present. The external carotid artery has no plaque proximally. Vertebral artery flow is antegrade. No defined ulceration noted. Left side: The left bifurcation-internal carotid artery has no plaque. Internal carotid maximum velocity is 97 cm/s , with a ratio of 0.839 . The common carotid artery has no plaque present. The external carotid artery has no plaque proximally. Vertebral artery flow is antegrade. No defined ulceration noted. CONCLUSION: No evidence of plaque in the bilateral internal carotid arteries with normal velocities. Vertebral artery flow is antegrade bilaterally. ++++++++++++++++++++++++++++++++++++ MEASUREMENTS: ++++++++++++++++++++++++++++++++++++ DOPPLER Right Prox CCA Prox CCA PSV 124 cm/s Right Dist CCA Dist CCA PSV 108 cm/s Right Prox ICA Prox ICA PSV 92.5 cm/s Prox ICA EDV 27.9 cm/s Right Mid ICA Mid ICA PSV 103 cm/s Mid ICA EDV 31.8 cm/s Right Dist ICA Dist ICA PSV 83.8 cm/s Dist ICA EDV 36.6 cm/s Right Prox ECA Prox ECA PSV 98.2 cm/s Right Vertebral Vertebral PSV 78 cm/s Right ICA/CCA RATIO ICA/CCA RATIO P 0.954 Left Prox CCA Prox CCA PSV 118 cm/s Left Dist CCA Dist CCA PSV 116 cm/s Left Prox ICA Prox ICA PSV 91.5 cm/s Prox ICA EDV 30.8 cm/s Left Mid ICA Mid ICA PSV 97.3 cm/s Mid ICA EDV 36.6 cm/s Left Dist ICA Dist ICA PSV 79 cm/s Dist ICA EDV 31.8 cm/s Left Prox ECA Prox ECA PSV 119 cm/s Left Vertebral Vertebral PSV 58.8 cm/s Left ICA/CCA RATIO ICA/CCA RATIO P 0.839 <Electronic Signature> 10/06/2024 08:26 PM Ghulam Devine M.D. Procedure Note Ghulam Devine MD - 10/06/2024 CAROTID ARTERY DUPLEX IMAGING VASCULAR LAB Pat.Name: LORA GUZMAN Pat.ID: [id number] .Date: 10/03/2024 : [id number] ABBEY HALL Exam Time: 11:08:00 AM Study Type:EDU VS Duplex Carotid BI Age: 11 1975,48Y Sex: F Sonogrphr: Klaudia Suazo, [facility] Pat. Stat.:Outpatient History / Clinical:Several falls, 15 in the last 6 month. Left knee gives out on her, has had 2 right foot fractures in the last 9 months, and ear clogged. Procedures: Meyer scale, Color Doppler imaging, Doppler Spectral Analysis ++++++++++++++++++++++++++++++++++++ SUMMARY: ++++++++++++++++++++++++++++++++++++ St E's Carotid Criteria 50-69% = PSV 180-230 and/or Ratio 2.0 - 4.0 >70% = PSV >230 and Ratio >4.0 or EDV >100 Stent Criteria >80% = PSV >340 and Ratio >4.0 Right side: The right bifurcation-internal carotid artery has no plaque. Internal carotid maximum velocity is 103 cm/s, with a ratio of 0.954 . The common carotid artery has no plaque present. The external carotid artery has no plaque proximally. Vertebral artery flow is antegrade. No defined ulceration noted. Left side: The left bifurcation-internal carotid artery has no plaque. Internal carotid maximum velocity is 97 cm/s , with a ratio of 0.839 . The common carotid artery has no plaque present. The external carotid artery has no plaque proximally. Vertebral artery flow is antegrade. No defined ulceration noted. CONCLUSION: No evidence of plaque in the bilateral internal carotid arteries with normal velocities. Vertebral artery flow is antegrade bilaterally. ++++++++++++++++++++++++++++++++++++ MEASUREMENTS: ++++++++++++++++++++++++++++++++++++ DOPPLER Right Prox CCA Prox CCA PSV 124 cm/s Right Dist CCA Dist CCA PSV 108 cm/s Right Prox ICA Prox ICA PSV 92.5 cm/s Prox ICA EDV 27.9 cm/s Right Mid ICA Mid ICA PSV 103 cm/s Mid ICA EDV 31.8 cm/s Right Dist ICA Dist ICA PSV 83.8 cm/s Dist ICA EDV 36.6 cm/s Right Prox ECA Prox ECA PSV 98.2 cm/s Right Vertebral Vertebral PSV 78 cm/s Right ICA/CCA RATIO ICA/CCA RATIO P 0.954 Left Prox CCA Prox CCA PSV 118 cm/s Left Dist CCA Dist CCA PSV 116 cm/s Left Prox ICA Prox ICA PSV 91.5 cm/s Prox ICA EDV 30.8 cm/s Left Mid ICA Mid ICA PSV 97.3 cm/s Mid ICA EDV 36.6 cm/s Left Dist ICA Dist ICA PSV 79 cm/s Dist ICA EDV 31.8 cm/s Left Prox ECA Prox ECA PSV 119 cm/s Left Vertebral Vertebral PSV 58.8 cm/s Left ICA/CCA RATIO ICA/CCA RATIO P 0.839 <Electronic Signature> 10/06/2024 08:26 PM Ghulam Devine M.D. us Gunnar Potter MD [facility] Final Result * MG SCREENING W JING RUIZ DIGI (03/12/2024 12:40 PM [employer]AMP [employer]ADE [employer]) Anatomical Region Laterality Modality Breast Bilateral Mammography 03/12/2024 4:47 PM [employer]AMP [employer]ADE [employer] Impressions 03/12/2024 4:50 PM LAMP SHADE [employer]KER ===== IMPRESSION: ===== 1. Stable mammographic appearance with no new findings to suggest malignancy in either breast. Assessment: ACR BI-RADS 2 - BENIGN FINDING(S) Recommendation: 1:Routine Screening Bilateral Comments: Ordered By: GUNNAR POTTER Interpreted By: Naila Bruno, 03/12/2024 4:47 PM Narrative 03/12/2024 4:50 PM [employer]AMP SHADE [employer] [address] [address] EXAMINATION: Digital bilateral screening mammogram with 3-D tomosynthesis EXAM DATE/TIME: 03/12/2024 10:39 AM REASON FOR EXAM: Routine screening COMPARISON: 02/13/2019. 12/09/2020 Technique: Digital screening mammography of both breasts was performed in addition to 3-D Tomosynthesis technique. This study was read with the assistance of a computer-aided detection system. Tissue density: There are scattered areas of fibroglandular density. Findings: There is no new focal asymmetry, dominant mass lesion, area of skin thickening, or cluster of suspicious appearing calcifications in either breast to suggest malignancy. us Gunnar Potter MD MAMMO Final Result from Last 3 Months or Most Recently Relevant to Health Maintenance Insurance [facility] Care Teams Network Consultant Relationship Specialty Start Date End Date Gunnar Potter MD [address] [place] [id number] PCP - General INTERNAL MEDICINE 12/03/18
[2024-10-23 17:47] LABS: Hematocrit 37.9 % (37.0-47.0); Hemoglobin 12.2 g/dL (12.0-15.0); Immature Granulocyte Percent A 0.2 % (0-0.5); Lymphocytes Absolute Auto 1.46 K/mm3 (0.9-3.2); Mean Corpuscular HGB Conc 32.2 g/dl (32-36); Mean Corpuscular Hemoglobin 30.0 pg (26-34); Mean Corpuscular Volume 93.1 fl (80-100); Nucleated Red Blood Cells Absolute Auto 0.000 K/mm3 (0.0-0.012); Nucleated Red Blood Cells Perc 0.0 % (0.0-0.2); Platelet Count Result 393 k/mm3 (150-375); Red Blood Count 4.07 M/mm3 (4.2-5.4); White Blood Count 8.9 K/mm3 (4.5-10.0)
[2024-10-23 17:57] LABS: Add Urine Microscopic? NO; Appearance Urine Clear (Clear); Glucose Urine UA Negative (Negative); Leukocyte Esterase Ur Negative LEU/UL (Negative); Nitrate Urine Negative (Negative); Specific Grav Ur 1.017 (1.001-1.035)
[2024-10-23 17:58] LABS: INR 1.0; Prothrombin Time 13.1 Seconds (11.1-14.7)
[2024-10-23 17:59] LABS: Alanine Aminotransferase 22 U/L (6-35); Albumin Level 4.6 g/dL (3.5-5.1); Alkaline Phosphatase 82 U/L (38-126); Anion Gap 7 mmol/L (4-12); Aspartate Amino Transferase 30 U/L (14-36); Bilirubin,Total 0.3 mg/dL (0.2-1.3); Blood Urea Nitrogen 17 mg/dL (7-17); Calcium 9.4 mg/dL (8.4-10.2); Carbon Dioxide 25 mmol/L (22-30); Chloride 106 mmol/L (98-107); Estimated CRCL calculation 78 ml/min; Estimated Glomerular Filt Rate > 60; Glucose 96 mg/dL (65-110); Partial Thromboplastin Time 29.0 Seconds (22.3-36.8); Potassium 4.2 mmol/L (3.4-5.0); Sodium 138 mmol/L (137-145); Total Protein 8.2 g/dL (6.3-8.2)
[2024-10-23 18:13] LABS: Cannabinoid Screen Urine Negative (Negative)
[2024-10-23 18:35] LABS: Thyroid Stimulating Hormone 2.300 uIU/mL (0.465-4.680)
[2024-10-23 20:40] VITALS: RESP 16
[2024-10-23 21:05] VITALS: BP 156/102; PULSE 83; RESP 16; TEMP 36.4; O2SAT 100
== END 2024-10-23 21:07 | disposition home or self-care (01) ==
PROVIDERS: Registered Nurse; Emergency Provider Family Medicine; PCP Podiatrist Foot & Ankle Surgery
DX: R42 Dizziness and giddiness (principal); Q79.60 Ehlers-Danlos syndrome, unspecified; I45.10 Unspecified right bundle-branch block; R94.31 Abnormal electrocardiogram [ECG] [EKG]
CPT/HCPCS: 36415; 70450; 80053; 80307; 81003; 82077; 84443; 85025; 85610; 85730; 93005; 99284

== ENCOUNTER 2024-11-07 09:36 | Outpatient (CLI) | payer BC, SELFPAY ==
--- NOTE | ~2024-11-07 | CT_ITS ---
EXAMINATION: CT sinus wo con COMPARISON: None HISTORY: Chronic sinusitis, unspecified TECHNIQUE: Axial images were obtained without IV contrast. Sagittal, coronal reconstruction images were obtained from the axial views. CT scan performed using dose optimization techniques including the following automated exposure control; adjustment of mA and/or kV; use of iterative reconstruction technique. Automatic exposure control was used to reduce radiation dose. Permanent radiation dose record is archived to PACS. FINDINGS: Visualized brain parenchyma and optic globes unremarkable. The visualized soft tissues appear unremarkable. Frontal sinus is unremarkable. Minimal mucosal thickening in the ethmoidal air cells. Minimal mucosal thickening in the maxillary sinuses. The ostiomeatal complexes are patent. Nasal septum the midline. No significant thickening of the turbinates benign of the nasal cavities. Sphenoid sinuses are unremarkable. No osseous destruction or wall thickening is identified. IMPRESSION: Minimal sinusitis Reviewed, dictated and finalized at location P. IMPRESSION: Minimal sinusitis
== END 2024-11-07 09:37 | disposition home or self-care (01) ==
LOC: MICIMG 09:37
PROVIDERS: PCP Otolaryngology; Visit Provider Otolaryngology
DX: J32.9 Chronic sinusitis, unspecified (principal)
CPT/HCPCS: 70486

== ENCOUNTER 2024-12-04 08:42 | Outpatient (CLI) | payer BC, SELFPAY ==
--- OUTSIDE RECORDS SUMMARY | 2024-12-04 09:00 | XMS_ITS | Clinical Summary ---
Author Organization [facility] Address [address] [place] [place] [address] Care Team Providers Care Wicker Worker Name Role Phone Gunnar Gonzalez MD Primary Care Provider [phone] Source Comments [facility],non-owned Affiliates and Associated Physician Practices is amultiple site organization consisting of ambulatory clinics and hospital sitesin [place], [place], [place] and [place]. This disclosure is being madepursuant to the Care Everywhere program and may not contain all information available regarding this patient. Last updated 17.[facility] Allergies Active Allergy Reactions Criticality Noted Date Comments Penicillins Itching Medium 08/22/2022 Medications * Be aware that medications may not be up to date on this document. Alwaysverify current medications with the patient. albuterol HFA (Proventil; Ventolin; Proair) 108 (90 Base) MCG/ACT inhaler 08/21/2022 Active Flovent Diskus 50 MCG/ACT inhaler Inhale 1 (one) puff by mouth 2 times daily 07/27/2022 Active montelukast (Singulair) 10 MG tablet Take 1 (one) tablet by mouth once daily 07/18/2022 Active spironolactone (Aldactone) 25 MG tablet Take 1 (one) tablet by mouth once daily 08/21/2022 Active verapamil CR (Isoptin-SR) 240 MG tablet Take 1 (one) tablet by mouth 07/18/2022 Active Fexofenadine HCl (MYESHA ALLERGY PO) Take 1 tablet by mouth once daily Active vitamin D3 (Cholecalciferol ) 10 MCG (400 UNIT) tablet Take 1 (one) tablet by mouth once daily Active Qvar RediHaler 80 MCG/ACT inhaler Inhale 1 (one) puff by mouth 2 times daily Active meloxicam (Mobic) 15 MG tabletIndication s:Chronic fatigue,Positive RUBY (antinuclear antibody) Take 1 tablet by mouth once daily 90 tablet 10/22/2024 Active hydroxychloroqui ne (Plaquenil) 200 MG tablet Take 1 tablet by mouth twice daily 180 tablet 10/22/2024 Active Encounters Date Type Department Care Team Description 10/18/2024 Refill [facility] - Rheumatology [facility], [facility] [place] [address] Gayle Spear MD Refill Request from Last [...] (ABNORMAL) COMPREHENSIVE METABOLIC PANEL (06/13/2024 12:02 PM CDT) BUN 16 7 - 26 mg/dL 06/13/2024 12:54 PM CDT [facility] Creatinine 0.64 0.56 - 0.96 mg/dL 06/13/2024 12:54 PM CDT [facility] Sodium 138 136 - 145 mmol/L 06/13/2024 12:54 PM [facility] Potassium 4.2 3.5 - 4.5 mmol/L 06/13/2024 12:54 PM [facility] Chloride 106 98 - 107 mmol/L 06/13/2024 12:54 PM [facility] CO2 20(L) 22 - 29 mmol/L 06/13/2024 12:54 PM [facility] Glucose 96 70 - 99 mg/dL 06/13/2024 12:54 PM [facility] Calcium 9.0 8.4 - 10.2 mg/dL 06/13/2024 12:54 PM [facility] Protein Total 7.8 6.0 - 8.3 g/dL 06/13/2024 12:54 PM [facility] Albumin 4.2 3.4 - 5.0 g/dL 06/13/2024 12:54 PM [facility] Bilirubin Total 0.3 0.2 - 1.2 mg/dL 06/13/2024 12:54 PM [facility] Alkaline Phosphatase 81 40 - 150 U/L 06/13/2024 12:54 PM [facility] ALT 13 5 - 55 U/L 06/13/2024 12:54 PM [facility] AST 17 5 - 34 U/L 06/13/2024 12:54 PM [facility] Anion Gap 12 6 - 16 06/13/2024 12:54 PM [facility] BUN/Creatinine Ratio 25(H) 7 - 23 06/13/2024 12:54 PM [facility] Osmolality Calculated 287 275 - 295 mOsm/kg 06/13/2024 12:54 PM [facility] Albumin/Globulin Ratio 1.2 1.1 - 2.3 06/13/2024 12:54 PM [facility] eGFR by CKD-EPI >90 >=90 mL/min/1.7 3 m2 06/13/2024 12:54 PM [facility] Blood BLOOD SPECIMEN / Unknown Lab Venipuncture / Unknown 06/13/2024 12:02 PM CDT 06/13/2024 12:20 PM CDT us Gricelda Dyson MD LAB - CHEMISTRY ORDERABL ES Final Result Performing Organization Address [facility] Co de Phone Number [address] [address], [place] [phone] * HEPATITIS C ANTIBODY (08/22/2022 11:36 AM CDT) Hepatitis C Antibody Non-react bee Non-reac tive 08/22/2022 2:34 PM CDT [facility] Comment:Hepatitis C Antibody screen indicates no [...] 11:36 AM CDT 08/22/2022 11:40 AM CDT us Alejandra Saenz MD LAB - CHEMISTRY ORDERA BLES Final Result Performing Organization Address [facility] Co de Phone Number [address] [address], [place] [phone] from Last 3 Months or Most Recently Relevant to Health Maintenance Insurance [employer] Care Teams Wicker Worker Relationship Specialty Start Date End Date Gunnar Gonzalez MD [address] [place] [address] PCP - General 06/06/22
--- OUTSIDE RECORDS SUMMARY | 2024-12-04 09:00 | XMS_ITS | Clinical Summary ---
Author Organization [facility] Address [address] [place]: Epic Prelude ADT SKINNY [place]BARRA [address] Care Team Providers Care Yard Clerk Name Role Phone Unavailable Primary Care Provider [...] on file Legal Sex Female 10:34 AM THEATRICAL TROUPER Gender Identity Not on file Sexual Orientation [...] INFLUENZA VACCINE (#1) 2024 Insurance RX [facility]
== END 2024-12-04 08:43 | disposition home or self-care (01) ==
LOC: ANHAUDASC 08:42
PROVIDERS: Visit Provider Otolaryngology
DX: R42 Dizziness and giddiness (principal)
CPT/HCPCS: 92557; 92567

== ENCOUNTER 2024-12-31 09:59 | Outpatient (CLI) | payer BC, SELFPAY ==
[2024-12-31 10:28] LABS: Hematocrit 40.3 % (37.0-47.0); Hemoglobin 13.0 g/dL (12.0-15.0)
--- OUTSIDE RECORDS SUMMARY | 2024-12-31 10:47 | XMS_ITS | Clinical Summary ---
Author Organization [facility] Address Formerly [facility], [id number] [place] [address] Care Team Providers Care Program Director Air Talent Name Role Phone Rafael Potter MD Primary Care Provider [phone] Medications verapamil (CALAN SR) 240 MG ER tablet 4 Active ZEPBOUND 5 MG/0.5ML injection INJECT 5MG SUBCUTANEOUSLY ONCE WEEKLY 4 Active spironolactone (ALDACTONE) 25 MG tablet Take 1 tablet (25 mg total) by mouth every morning. FOR 14 DAYS 4 Active neomycin-polym yxin-dexametha sone (MAXITROL) 3.5-28180-3.1 Suspension INSTILL 1 DROP INTO RIGHT EYE [...] Encounters Date Type Department Care Team Description 10/24/2024 9:37 AM CDT - 10/24/2024 11:59 PM CDT Hospital Encounter [facility] [address] [place] [address] Rafael Potter MD Discharge Disposition: Home or Self Care (Routine Discharge) 10/24/2024 Travel 10/03/2024 11:00 AM CDT - 10/03/2024 11:59 PM CDT Hospital Encounter [facility] [address] [place] [address] Rafael Potter MD Discharge Disposition: Home or Self Care (Routine Discharge) 10/03/2024 Travel from Last 3 Months Family History Medical History Relation Comments Breast Cancer Neg Hx Social History Tobacco Use Types Packs/Day Years Used Date Smoking Tobacco: Never Passive Smoke Exposure: Never Smokeless Tobacco: Never Tobacco Cessation:Counseling Given: No Comments No Sex and Gender Information Value Date Recorded Sex Assigned at Female 10/24/2024 9:35 AM CDT Legal Sex Female 1:40 AM CDT Gender Identity Not on file Sexual Orientation Not on file Last Filed Vital Signs Vital Sign Reading Time Taken Comments Blood Pressure 125/74 01/09/2024 1:08 PM FINGER LIFT OPERATOR Pulse 78 01/09/2024 1:08 PM FINGER LIFT OPERATOR Temperature 36.7 C (98.1 F) 01/09/2024 1:08 PM FINGER LIFT OPERATOR Respiratory Rate 16 01/09/2024 1:08 PM FINGER LIFT OPERATOR Oxygen Saturation 100% 01/09/2024 1:08 PM FINGER LIFT OPERATOR Inhaled Oxygen Concentration - - Weight 86.4 kg (190 lb 6.4 oz) 01/09/2024 1:08 P M FINGER LIFT OPERATOR Height 175.3 cm (5' 9) 09/28/2011 9:05 AM CDT Body Mass Index - - Plan of Treatment Upcoming Encounters Date Type Department Care Team (Late st Contact Info) Description 02/10/2025 11:00 AM FINGER LIFT OPERATOR Office Visit [facility] Multispecialty Care - [facility] [address] [place] [phone] Martha Victor NP [address] [facility] [address] [place] [address] Health Maintenance Due Date Last Done Comments [...] Screening wi th HPV 12/19/2005 PHQ-2 (Physician Piqua) 02/06/2024 COVID-19 Vaccine (2 - 2024-2 6 season) 2024 04/15/2020 Influenza Adult (#1) 2024 11/11/2018, 11/02/2016, 03/31/2016 Mammogram Screening 03/12/2026 03/12/2024, 12/09/2020, 02/13/2019 Hepatitis C Completed 08/22/2022 Hepatitis A Vaccines Aged Out No long er eligible based on patient's age to complete this topic Meningococcal B Vaccine Aged Out No l [...] Procedure Name Priority Date/Time Associated Diagnosis Comments MRI BRAIN WO CON Routine 10/24/2024 10:2 4 AM CDT Repeated falls USV CAROTID DUPLEX RUIZ Routine 10/03/2024 11:31 AM CDT Repeated falls Pain in left knee MG SCREENING W JING RUIZ DIGI Routine 03/12/2024 12:40 PM FINGER LIFT OPERATOR Screening mammogram for breast cancer from Last 3 Months or Most Recently Relevant to Health Maintenance Results * MRI BRAIN WO CON (10/24/2024 10:24 AM CDT) Anatomical Region Laterality Modality Head Magnetic Resonan ce 10/24/2024 2:15 PM CDT Impressions 10/24/2024 2:28 PM CDT IMPRESSION: 1. No acute intracranial findings. 2. Sinus disease as above. Referred By: RAFAEL POTTER Interpreted By: Prateek Sims MD, 10/24/2024 2:15 PM Narrative 10/24/2024 2:28 PM [address]T [address] [address] INDICATION: Leg weakness, dizziness EXAMINATION: MRI of the brain without contrast. TECHNIQUE: Multisequence multiplanar unenhanced imaging. DATE/TIME: 10/24/2024 10:00 AM COMPARISON: None. FINDINGS: There is no evidence of restricted diffusion or acute infarct. There is no evidence of intracranial mass lesion, mass effect, or midline shift. No hydrocephalus. Hiram cisterna magna, anatomic variant. The proximal portions of the major intracranial arterial flow voids are grossly patent. No abnormal extra-axial collections identified. Gradient images demonstrate no evidence of hemorrhage. There is no evidence of demyelinating disease or encephalitis. There is fluid in the right maxillary sinus with associated mucosal thickening. Acute sinusitis is not excluded, recommend clinical correlation. There is also minimal thickening in the right frontal sinus and in the right anterior ethmoid air cells. Mastoid air cells, paranasal sinuses, and images of the orbits are otherwise unremarkable. Procedure Note Prateek Sims MD - 10/24/[address] [address] INDICATION: Leg weakness, dizziness EXAMINATION: MRI of the brain without contrast. TECHNIQUE: Multisequence multiplanar unenhanced imaging. DATE/TIME: 10/24/2024 10:00 AM COMPARISON: None. FINDINGS: There is no evidence of restricted diffusion or acute infarct. There is noevidence of intracranial mass lesion, mass effect, or midline shift. Nohydrocephalus. Hiram cisterna magna, anatomic variant. The proximalportions of the major intracranial arterial flow voids are grossly patent.No abnormal extra-axial collections identified. Gradient imagesdemonstrate no evidence of hemorrhage. There is no evidence ofdemyelinating disease or encephalitis. There is fluid in the rightmaxillary sinus with associated mucosal thickening. Acute sinusitis is notexcluded, recommend clinical correlation. There is also minimal thickeningin the right frontal sinus and in the right anterior ethmoid air cells.Mastoid air cells, paranasal sinuses, and images of the orbits areotherwise unremarkable. IMPRESSION: 1. No acute intracranial findings. 2. Sinus disease as above. Referred By: ARFAEL POTTER Interpreted By: Prateek Sims MD, 10/24/2024 2:15 PM Rafael Potter MD MRI Final Result * USV CAROTID DUPLEX RUIZ (10/03/2024 11:31 AM CDT) Anatomical Region Laterality Modality Neck Vascular Ultraso und 10/03/2024 11:0 8 AM CDT Narrative 10/06/2024 8:26 PM CDT CAROTID ARTERY DUPLEX IMAGING [facility]ASCULAR LAB Pat.Name: AISSATOU GUZMAN Pat.ID: [id number] .Date: 10/03/2024 Refer.: [id number] ABBEY HALL Exam Time: 11:08:00 AM Study Type:EDU VS Duplex Carotid BI Age: 11 1975,48Y Sex: F Sonogrphr: Klaudia Suazo, Power Pat. Stat.:Outpatient History / Clinical:Several falls, 15 [...] CAROTID ARTERY DUPLEX IMAGING [facility]ASCULAR LAB Pat.Name: AISSATOU GUZMAN [place]Y Pat.ID: [id number] St.Date: 10/03/2024 Refer.: [id number] [facility]BE[facility]ALL Exam Time: 11:08:00 AM Study Type:EDU VS Duplex Carotid BI Age: 11 1975,48Y Sex: F Sonogrphr: Klaudia Suazo, [facility] Pat. Stat.:Outpatient History / Clinical:Several falls, 15 [...] Signature> 10/06/2024 08:26 PM Ghulam Devine M.D. Rafael Potter MD VASC Final Result * MG SCREENING W JING RUIZ DIGI (03/12/2024 12:40 PM FINGER LIFT OPERATOR) Anatomical Region Laterality Modality Breast Bilateral Mammography 03/12/2024 4:47 PM FINGER LIFT OPERATOR Impressions 03/12/2024 4:50 PM FINGER LIFT OPERATOR ===== IMPRESSION: ===== 1. Stable mammographic appearance with no new findings to suggest malignancy in either breast. Assessment: ACR BI-RADS 2 - BENIGN FINDING(S) Recommendation: 1:Routine Screening Bilateral Comments: Ordered By: RAFAEL POTTER Interpreted By: Naila Bruno, 03/12/2024 4:47 PM Narrative 03/12/2024 4:50 PM FINGER LIFT OPERATOR [facility] [address] [place] [address] EXAMINATION: Digital bilateral screening mammogram with 3-D [...] calcifications in either breast to suggest malignancy. Rafael Potter MD MAMMO Final Result from Last 3 Months or Most Recently Relevant to Health Maintenance Insurance [facility] Care Teams Program Director Air Talent Relationship Specialty Start Date End Date Rafael Potter MD [address] [address] PCP - General INTERNAL MEDICINE 12/03/18
--- OUTSIDE RECORDS SUMMARY | 2024-12-31 10:47 | XMS_ITS | Clinical Summary ---
Author Organization [facility] Address [address] [place]: Epic Prelude ADT SKINNY IBARRA [phone] Care Team Providers Care Evening Anchor Name Role Phone Unavailable Primary Care Provider [...] on file Legal Sex Female 10:34 AM TELEPHONE OPERATORS SUPERVISOR Gender Identity Not on file Sexual Orientation [...]
--- OUTSIDE RECORDS SUMMARY | 2024-12-31 10:47 | XMS_ITS | Clinical Summary ---
Author Organization [facility] Address [address] [facility] [place] [address] Care Team Providers Care Lacquer Mixer Name Role Phone Gunnar Gonzalez MD Primary Care Provider [phone] Source Comments [facility],non-owned Affiliates and Associated Physician Practices is amultiple site organization consisting of ambulatory clinics and hospital sitesin [place], [place], [place] and [place]. This disclosure is being madepursuant to the Care Everywhere program and may not contain all information available regarding this patient. Last updated 17.[facility] Allergies Active Allergy Reactions Criticality Noted Date [...] Type Department Care Team Description 10/18/2024 Refill [facility] - Rheumatology [address] [place] [phone] Gayle Spear MD Refill Request from Last [...] 06/10/2024 10:29 AM CDT Plan of Treatment Upcoming Encounters Date Type Department Care Team (Late st Contact Info) Description 01/26/2025 11:30 AM GLASSWARE DEFECT REPAIRER Office Visit [facility] - Rheumatology [address] [place] [phone] Pepe Yoder MD [address] [facility] [facility] [place] [address] Health Maintenance Due Date Last Done Comments [...] 19+ 3-dose series) 12/19/1994 Cervical Cancer Screening 12/19/1996 PAP SMEAR 12/19/1996 PAP with HPV 12/19/2005 DEPRESSION SCREENING 02/06/2024 COVID-19 VACCINE ( - season) 2024 INFLUENZA VACCINE (#1) 2024 ZOSTER VACCINE (1 of 2) 12/19/2025 MAMMOGRAM 03/12/2026 03/12/2024, 02/0 06/2024, 12/09/2020, Additional history exists SCREENING FOR [...] (ABNORMAL) COMPREHENSIVE METABOLIC PANEL (06/13/2024 12:02 PM [facility]) BUN 16 7 - 26 mg/dL 06/13/2024 12:54 PM [facility] Creatinine 0.64 0.56 - 0.96 mg/dL 06/13/2024 12:54 PM [facility] Sodium 138 136 - 145 mmol/L 06/13/2024 12:54 PM [facility] Potassium 4.2 3.5 - 4.5 mmol/L 06/13/2024 12:54 PM [facility] Chloride 106 98 - 107 mmol/L 06/13/2024 12:54 PM [facility] CO2 20(L) 22 - 29 mmol/L 06/13/2024 12:54 PM [facility] Glucose 96 70 - 99 mg/dL 06/13/2024 12:54 PM [facility] Calcium 9.0 8.4 - 10.2 mg/dL 06/13/2024 12:54 PM [facility] Protein Total 7.8 6.0 - 8.3 g/dL 06/13/2024 12:54 PM [facility] Albumin 4.2 3.4 - 5.0 g/dL 06/13/2024 12:54 PM [facility] Bilirubin Total 0.3 0.2 - 1.2 mg/dL 06/13/2024 12:54 PM [facility] Alkaline Phosphatase 81 40 - 150 U/L 06/13/2024 12:54 PM [facility] ALT 13 5 - 55 U/L 06/13/2024 12:54 PM [facility] AST 17 5 - 34 U/L 06/13/2024 12:54 PM [facility] Anion Gap 12 6 - 16 06/13/2024 12:54 PM [facility] BUN/Creatinine Ratio 25(H) 7 - 23 06/13/2024 12:54 PM [facility] Osmolality Calculated 287 275 - 295 mOsm/kg 06/13/2024 12:54 PM [facility] Albumin/Globulin Ratio 1.2 1.1 - 2.3 06/13/2024 12:54 PM CDT [facility] eGFR by CKD-EPI >90 >=90 mL/min/1.7 3 m2 06/13/2024 12:54 PM CDT [facility] Blood BLOOD SPECIMEN / Unknown Lab Venipuncture / Unknown 06/13/2024 12:02 PM CDT 06/13/2024 12:20 PM CDT Gricelda Dyson MD LAB - CHEMISTRY ORDERABL ES Final Result Performing Organization Address [facility]/ZIP Co de Phone Number [facility] [address] [place] [address], [place] [phone] * HEPATITIS C ANTIBODY (08/22/2022 11:36 AM CDT) Hepatitis C Antibody Non-react bee Non-reac tive 08/22/2022 2:34 PM CDT [facility] Comment:Hepatitis C Antibody screen indicates no [...] LAB - CHEMISTRY ORDERA BLES Final Result [facility] [address] [place] [phone], [place] [phone] from Last 3 Months or Most Recently Relevant to Health Maintenance Insurance [employer] Care Teams Lacquer Mixer Relationship Specialty Start Date End Date Gunnar Gonzalez MD [address] [place], [place] [phone] PCP - General 06/06/22
[2024-12-31 10:48] LABS: Anion Gap 6 mmol/L (4-12); Blood Urea Nitrogen 19 mg/dL (7-17); Calcium 9.0 mg/dL (8.4-10.2); Carbon Dioxide 24 mmol/L (22-30); Chloride 106 mmol/L (98-107); Estimated Glomerular Filt Rate > 60; Glucose 96 mg/dL (65-110); Potassium 4.5 mmol/L (3.4-5.0); Sodium 136 mmol/L (137-145)
== END 2024-12-31 10:00 | disposition home or self-care (01) ==
PROVIDERS: Anesthesiology; PCP Internal Medicine; Visit Provider Otolaryngology
DX: D64.9 Anemia, unspecified (principal); Z79.899 Other long term (current) drug therapy
CPT/HCPCS: 36415; 80048; 85014; 85018